=== PATIENT | female | born 1980 | race Caucasian/White ===

== ENCOUNTER → 2016-10-28 | Outpatient (CLI) | payer OTHER ==
[~2016-10-28] MED LIST: OSCAL 500 TAB500 MG PO; VITAMIN D 1001000 IU PO
== END ==
LOC: COL.RAD 10:28
DX: R10.31 Right lower quadrant pain (principal); M54.5 Low back pain

== ENCOUNTER → 2017-01-07 | Outpatient (REF) ==
[2017-01-07 19:14] LABS: THYROID STIMULATING HORMONE 0.836 uIU/mL (0.465-4.680)
== END ==
LOC: ZLAB.WCH 18:33
PROVIDERS: Nurse Practitioner Family
DX: Z01.89 Encounter for other specified special examinations (principal)

== ENCOUNTER → 2019-12-28 | Outpatient (REF) | LOC: COL.CARD 08:42 | DX: Z01.818 Encounter for other preprocedural examination (principal) ==

== ENCOUNTER → 2020-04-16 | Outpatient (CLI) | payer OTHER | LOC: COL.CARD 09:28 | DX: R90.89 Other abnormal findings on diagnostic imaging of central nervous system (principal); R40.20 Unspecified coma ==